=== PATIENT | male | born 1950 ===

== ENCOUNTER 2020-10-15 14:26 | Emergency (ER) | payer OTHER, SELFPAY ==
--- NOTE | ~2020-10-15 | CT_ITS ---
EXAMINATION: CTA chest PE protocol DATE: 10/15/2020 18:55 INDICATION: Shortness of breath, cough and chest pain TECHNIQUE: Computed tomography (CT) pulmonary angiogram of the chest was performed with 100 mL Omnipa que-350 intravenous contrast. Additional 3D reconstructions utilizing coronal maximum intensity proje ction (MIP) were performed. Automated exposure control and iterative reconstruction technique were em ployed. The dose-length product was 489.11 mGy-cm. COMPARISON: None FINDINGS: Excellent contrast opacification of the pulmonary arteries. There is mild streak artifact from dense contrast in the superior vena cava and right atrium. Mild scattered respiratory motion artifact which does not significantly limit evaluation. No pulmonary embolism. Mild peripheral predominant patchy a irspace opacities in the bilateral mid and upper lung zones and more diffuse peripheral groundglass a nd reticular opacities at the lung bases with appearance and pattern most suspicious for COVID pneumo rupa. Mild emphysema. No pleural effusion. Heart size is normal. No pericardial effusion. Thoracic aor ta is normal in caliber with no dissection. 10 mm low-attenuation likely cyst or hemangioma in the le ft hepatic lobe. Small sliding-type hiatal hernia. Visualized upper abdomen is otherwise unremarkable . Moderate thoracic spondylosis. Chronic minimal to mild anterior wedging at T7 and T9-T11. IMPRESSION: 1. No pulmonary embolism. 2. Mild diffuse peripheral and lower lung predominant lung disease with pattern most suspicious for C OVID pneumonia. 3. Mild emphysema. 4. Small sliding-type hiatal hernia. Reviewed, dictated and finalized at location A. ER LOBSTER IMPRESSION: 1. No pulmonary embolism. 2. Mild diffuse peripheral and lower lung predominant lung disease with pattern most suspicious for COVID pneumonia. 3. Mild emphysema. 4. Small sliding-type hiatal hernia.
--- NOTE | ~2020-10-15 | XR_ITS ---
XR chest 2V 10/15/2020 15:13 Indication: Dry cough. Generalized chest pain. Procedure: 2 view chest Comparison: No prior studies for comparison. Findings: Heart size is normal. No focal air space disease, pulmonary edema, pleural effusion or susp ected pneumothorax. Impression: 1: No acute cardiopulmonary disease. Reviewed, dictated and finalized at location B. EM MILL OPERATOR Impression: 1: No acute cardiopulmonary disease.
[2020-10-15 14:29] VITALS: BP 115/68; PULSE 88; RESP 18; TEMP 35.5; O2SAT 100
--- NOTE | 2020-10-15 14:29 | ECG_ITS ---
Measurements Intervals [place] Rate: 84 P: 41 MS: 151 QRS: 1 QRSD: 86 T: 33 QT: 342 QTc: 406 Interpretive Statements SINUS RHYTHM EARLY PRECORDIAL R/S TRANSITION BORDERLINE ECG Electronically Signed On 10-15-2020 14:45:23 [employer]TER MECHANIC by Clinton Shore D.O.
[2020-10-15 15:01] LABS: Basophils Percent Auto 0.6 % (0.2-1.2); Eosinophils Percent Auto 0.9 % (0-4.4); Hematocrit 47.4 % (42.0-52.0); Hemoglobin 16.1 g/dL (14.0-18.0); Immature Granulocyte Absolute 0.02 K/mm3 (0.00-0.031); Immature Granulocyte Percent A 0.6 % (0-0.5); Immature Platelet Fraction Pct 5.1 % (0.9-11.2); Lymphocytes Absolute Auto 0.95 K/mm3 (0.9-3.2); Mean Corpuscular Hemoglobin 31.4 pg (26-34); Mean Corpuscular Volume 92.4 fl (80-100); Mean Platelet Volume 10.5 fl (7.4-10.4); Monocytes Absolute Auto 0.5 K/mm3 (0.1-0.6); Monocytes Percent Auto 14.7 % (2.6-8.5); Neutrophils Absolute Auto 1.9 K/mm3 (1.3-6.7); Neutrophils Percent Auto 55.2 % (45.5-73.1); Platelet Count Result 110 k/mm3 (150-375); Red Blood Count 5.13 M/mm3 (4.6-6.20); Red Cell Distribution Width 11.9 % (11.5-14.5); White Blood Count 3.4 K/mm3 (4.5-10.0)
[2020-10-15 15:09] LABS: INR 0.9; Prothrombin Time 12.8 Seconds (11.1-14.7)
[2020-10-15 15:10] LABS: Partial Thromboplastin Time 42.2 SECONDS (22.3-36.8)
[2020-10-15 15:14] LABS: Anion Gap 5 mmol/L (8-16); Blood Urea Nitrogen 16 mg/dL (9-20); Calcium 8.9 mg/dL (8.4-10.2); Carbon Dioxide 30 mmol/L (22-30); Chloride 102 mmol/L (98-107); Estimated CRCL calculation 57 ml/min; Estimated Glomerular Filt Rate > 60; Glucose 100 mg/dL (75-110); Potassium 3.8 mmol/L (3.4-5.0); Sodium 137 mmol/L (137-145)
[2020-10-15 15:25] LABS: Troponin I 0.013 ng/mL (0.000-0.034)
[2020-10-15] MEDS: ASPIRIN 81 MG CHEWABLE TABLET 324 MG PO (15:35)
--- NOTE | 2020-10-15 16:00 | ED.GENADULT ---
HPI - General Adult General Chief complaint: Chest Pain <Ketty Larsen MD - Last Filed: 10/15/20 18:51> Stated complaint: SOB, Cough, Chest Pain <Ketty Larsen MD - Last Filed: 10/15/20 18:51> Time Seen by Provider: 10/15/20 15:24 <Ketty Larsen MD - Last Filed: 10/15/20 18:51> History of Present Illness HPI narrative: Patient 70 years old male came to the emergency room complaining of body aches, chills, shortness of breath on exertion, intermittent chest pain with deep breath for the last 2 weeks. Patient also had syncope x2 6 days ago and was seen in one of the hospital at [facility], [place] and was discharged with normal blood work-up. Patient works as a local company flatbed truck driver, does not take medicine at home, does not smoke or drink or uses drugs. Came to our emergency room today telling me that his above symptoms are not getting better. Patient denies any fever, chills, nausea, vomiting, headache, COVID-19 infection or exposure to anybody with COVID-19 recently. Patient reported that his granddaughter had COVID-19 infection 1-1/2 to 2 months ago. <Ketty Larsen MD - Last Filed: 10/15/20 18:51> Related Data Allergies/adverse reactions: Allergies Allergy/AdvReac Type Severity Reaction Status Date / Time No Known Allergies Allergy Verified 10/15/20 14:32 <Ketty Larsen MD - Last Filed: 10/15/20 18:51> Review of Systems Review of Systems: Narrative: CONSTITUTIONAL: Denies fever, chills, or sweats. EYES: Denies visual changes, redness, or discharge. ENT: Denies rhinorrhea, congestion, sore throat, or otalgia. CARDIOVASCULAR: Denies chest pain, palpitations, or edema. RESPIRATORY: Slight cough recently and shortness of breath on activity GASTROINTESTINAL: Denies abdominal pain, nausea, vomiting, or diarrhea. GENITOURINARY: Denies dysuria or hematuria. SKIN: Denies rash or itching. MUSCULOSKELETAL: Denies back pain, joint pain, or myalgia. NEUROLOGIC: Denies headache, numbness, or weakness. PSYCHIATRIC: Denies anxiety or depression. <Ketty Larsen MD - Last Filed: 10/15/20 18:51> Exam Narrative: Exam Narrative: General appearance: Well-developed, well-nourished Skin: Normal color Head: Normocephalic, nontraumatic Eyes: Clear conjunctiva ENT: Oropharynx normal, ears normal, nose normal Neck: Supple, nontender Chest and respiratory: Airway patent, no respiratory distress, no accessory muscle use Heart: Regular rate/rhythm Abdomen: Soft, nontender, no organomegaly, quiet bowel sounds Vascular: Normal peripheral pulses, normal capillary refill. Musculoskeletal: Normal range of motion, nontender back Neurologic: Alert and oriented ?3, [employer]IDENT is normal as tested, no gross motor deficit <Ketty Larsen MD - Last Filed: 10/15/20 18:51> Course Course Emergency Course: Stable <Ketty Larsen MD - Last Filed: 10/15/20 18:51> Vital signs patient had negative troponin x2 in the emergency department CTA of the chest showed no evidence of pulmonary embolism, but found finding suspicious for COVID-19 pneumonia. <Rodrigo Horvath MD - Last Filed: 10/15/20 19:44> Vital Signs Vital signs: Vital Signs Temperature 35.5 C L 10/15/20 14:29 Pulse Rate 88 10/15/20 14:29 Respiratory Rate 18 10/15/20 14:29 Blood Pressure 115/68 10/15/20 14:29 Pulse Oximetry 100 10/15/20 14:29 Temperature 35.5 C L 10/15/20 14:29 Pulse Rate 68 10/15/20 19:12 Respiratory Rate 18 10/15/20 19:12 Blood Pressure 101/66 10/15/20 19:12 Pulse Oximetry 98 10/15/20 19:12 <Ketty Larsen MD - Last Filed: 10/15/20 18:51> Vital Signs Temperature 35.5 C L 10/15/20 14:29 Pulse Rate 88 10/15/20 14:29 Resp
[2020-10-15 17:00] VITALS: BP 93/71; PULSE 68; RESP 18; O2SAT 100
[2020-10-15 17:00] LABS: D Dimer 2.16 ug/mL (<0.48)
[2020-10-15 17:03] LABS: Add Urine Microscopic? YES; Appearance Urine Clear (Clear); Bacteria Urine Trace /hpf; Bilirubin Urine Negative (Negative); Blood Urine Negative (Negative); Color Urine Yellow (Yellow); Glucose Urine UA Negative (Negative); Ketones Urine Negative (Negative); Leukocyte Esterase Ur Negative LEU/UL (Negative); Mucus Urine Few /lpf; Nitrate Urine Negative (Negative); Protein Urine 1+ mg/dL (Negative); Specific Grav Ur 1.026 (1.001-1.035)
[2020-10-15 17:08] LABS: NT Pro B Type Natriuretic Pept 212 PG/ML (5-100)
[2020-10-15 18:02] LABS: Troponin I < 0.012 ng/mL (0.000-0.034)
[2020-10-15 19:12] VITALS: BP 101/66; PULSE 68; RESP 18; O2SAT 98
[2020-10-15] MEDS: ENOXAPARIN 80 MG/0.8 ML SYRINGE 90 MG SUB-Q (19:13)
[2020-10-15 20:03] VITALS: BP 108/72; PULSE 64; RESP 16; TEMP 36.6; O2SAT 98
[2020-10-15 23:52] LABS: SARS-CoV-2 RNA PCR Positive
== END 2020-10-15 20:04 | disposition home or self-care (01) ==
PROVIDERS: Emergency Provider Emergency Medicine
DX: U07.1 COVID-19 (principal); R07.89 Other chest pain; R06.00 Dyspnea, unspecified; D72.819 Decreased white blood cell count, unspecified; R55 Syncope and collapse; R79.1 Abnormal coagulation profile; R94.31 Abnormal electrocardiogram [ECG] [EKG]
CPT/HCPCS: 36415; 71046; 71275; 80048; 81001; 83880; 84484; 85025; 85055; 85380; 85610; 85730; 87804; 93005; 96372; 99284; A9270; C9803; J1650; Q9967; U0003; U0005